=== PATIENT | female | born 1990 | race Asian ===

== ENCOUNTER 2023-05-21 09:12 | Inpatient (IN) | payer MEDICAID ==
[~2023-05-21] VITALS: Ht 160 cm; Wt 68.5 kg
[2023-05-21] MEDS ORDERED: RHO(D) IMMUNE GLOBULIN 300 MCG/SYR IM NR (10:00)
[2023-05-21] MEDS: LACTATED RINGERS 1,000 ML IV SCH ×2 (10:49→11:13)
[2023-05-21 11:10] LABS: BASOPHILS % 0.2 % (0.0-2.0); EOSINOPHILS % 0.9 % (0.0-5.0); HEMATOCRIT. 38.1 % (36.0-48.0); HEMOGLOBIN. 12.4 g/dL (12.0-16.0); LYMPHOCYTES % 22.9 % (20.0-50.0); MEAN CORPUSCULAR HEMOGLOBIN 26.5 pg (28.0-32.0); MEAN CORPUSCULAR HGB CONC 32.5 g/dL (31.0-37.0); MEAN CORPUSCULAR VOLUME 81.6 fL (81.0-99.0); MEAN PLATELET VOLUME 10.1 fl (7.4-10.4); MONOCYTES % 6.8 % (2.0-8.0); NEUTROPHILS % 69.2 % (40.0-76.0); PLATELET 202 x1000/uL (130-400); RED BLOOD CELL COUNT 4.67 mill/uL (4.2-5.4); RED CELL DISTRIBUTION WIDTH 15.3 % (11.6-14.6); WHITE BLOOD COUNT 7.9 x1000/uL (4.5-11.0)
[2023-05-21 11:13] LABS: CLARITY URINE CLOUDY (CLEAR); COLOR URINE YELLOW (YELLOW); GLUCOSE URINE NEGATIVE (NEGATIVE); KETONES URINE NEGATIVE (NEGATIVE); LEUKOCYTE ESTERASE URINE 3+ (NEGATIVE); NITRITE URINE NEGATIVE (NEGATIVE); OCCULT BLOOD URINE NEGATIVE (NEGATIVE); PH URINE 6.5 (4.5-8.0); PROTEIN URINE NEGATIVE (NEGATIVE); SPECIFIC GRAVITY URINE 1.007 (1.005-1.030); UROBILINOGEN URINE 0.2 E.U./dL (0.2-1.0)
[2023-05-21 11:36] LABS: INR 0.9; PARTIAL THROMBOPLASTIN TIME 27.1 sec (23.4-31.0); PROTHROMBIN TIME 9.8 sec (9.6-11.0)
[2023-05-21 11:40] LABS: RAPID HIV SCREEN NEGATIVE (NEGATIVE)
[2023-05-21 11:47] LABS: *AMPHETAMINES SCREEN URINE NEGATIVE (NEGATIVE); *BARBITURATES SCREEN URINE NEGATIVE (NEGATIVE); *BENZODIAZEPINES SCREEN URINE NEGATIVE (NEGATIVE); *COCAINE SCREEN URINE NEGATIVE (NEGATIVE); CANNABINOID URINE SCREEN NEGATIVE (NEGATIVE); ECSTASY MDMA SCREEN URINE NEGATIVE (NEGATIVE); METHADONE URINE SCREEN NEGATIVE (NEGATIVE); OPIATES URINE SCREEN NEGATIVE (NEGATIVE); PHENCYCLIDINE URINE SCREEN NEGATIVE (NEGATIVE)
[2023-05-21 11:51] LABS: SQUAMOUS EPITHELIAL CELL URINE 3+ /lpf (RARE/1+)
[2023-05-21 11:52] LABS: BACTERIA URINE 3+; RBC URINE NONE SEEN /hpf (0-2)
[2023-05-21] MEDS ORDERED: MORPHINE SULFATE/PF 1MG/ML 10ML AMP ONE (12:02)
[2023-05-21] MEDS ORDERED: LACTATED RINGERS 1,000 ML IV SCH (13:00)
[2023-05-21] MEDS ORDERED: DEXAMETHASONE 4MG/ML 1ML VIAL ONE (13:25)
[2023-05-21] MEDS ORDERED: OXYTOCIN 10 UNITS/ML 1ML ONE (13:25)
[2023-05-21] MEDS ORDERED: CEFAZOLIN SODIUM 1000MG/VIAL ONE (13:25)
[2023-05-21] MEDS ORDERED: KETOROLAC 60MG/2ML VIAL IM ONE (13:25)
[2023-05-21] MEDS ORDERED: METOCLOPRAMIDE HCL 10MG/2ML VIAL IV PRN (13:30)
[2023-05-21] MEDS ORDERED: FENTANYL CITRATE/PF 50MCG/ML 2ML VIAL IV PRN (13:30)
[2023-05-21] MEDS ORDERED: NALOXONE HCL 0.4 MG/ML 1ML VIAL IV PRN (13:30)
[2023-05-21] MEDS ORDERED: MORPHINE SULFATE/PF 1MG/ML 10ML AMP EPI PRN (13:30)
[2023-05-21] MEDS ORDERED: DIPHENHYDRAMINE 50MG/ML VIAL IV PRN (13:30)
[2023-05-21] MEDS ORDERED: ONDANSETRON HCL 4MG/2ML INJ IV PRN ×2 (13:30→19:45)
[2023-05-21] MEDS ORDERED: KETOROLAC 30MG/ML VIAL IV PRN (13:30)
[2023-05-21 13:47] LABS: HEPATITIS B SURFACE ANTIGEN NEGATIVE; RUBELLA IGG 105.4 IU/mL (4.99-10)
[2023-05-21] MEDS ORDERED: BISACODYL 10MG SUPP PR PRN (19:45)
[2023-05-21] MEDS ORDERED: DIPHENHYDRAMINE 25MG CAPSULE PO PRN (19:45)
[2023-05-21] MEDS ORDERED: OXYTOCIN 30 UNITS/500ML NS PMX 500 ML IV SCH (19:45)
[2023-05-21] MEDS ORDERED: RHO(D) IMMUNE GLOBULIN 300 MCG/SYR IM PRN (19:45)
[2023-05-21] MEDS ORDERED: HEMORRHOIDAL SUPP PR PRN (19:45)
[2023-05-21] MEDS ORDERED: IBUPROFEN 400MG TABLET PO PRN (19:45)
[2023-05-21] MEDS ORDERED: LANOLIN OINT 7GM TUBE TOP PRN (19:45)
[2023-05-21 20:00] VITALS: BP 102/62; PULSE 86; RESP 18; TEMP 97.4; O2SAT 97
[2023-05-21] MEDS ORDERED: NALOXONE HCL 0.4MG/ML VIAL IV PRN (20:30)
[2023-05-21] MEDS: SIMETHICONE 80MG TABLET CHEW PO SCH (22:18)
[2023-05-22] VITALS (7 sets, daily range): BP systolic 90–109; BP diastolic 50–67; PULSE 66–83; RESP 18; TEMP 97.1–98.4; O2SAT 98–99
[2023-05-22] MEDS: LACTATED RINGERS 1,000 ML IV SCH (02:25)
[2023-05-22] MEDS ORDERED: DIPHENHYDRAMINE 50MG/ML VIAL IV PRN (03:45)
[2023-05-22] MEDS: SIMETHICONE 80MG TABLET CHEW PO SCH ×4 (08:04→20:47)
[2023-05-22] MEDS: FERROUS SULFATE 325MG TABLET PO SCH ×3 (08:04→17:51)
[2023-05-22] MEDS ORDERED: PRENATAL VIT/FE FUMARATE/FA TABLET PO SCH (09:00)
[2023-05-22] MEDS: IBUPROFEN 800MG TABLET PO PRN (09:55)
[2023-05-22] MEDS: OXYCODONE HCL/ACETAMINOPHEN 5/325MG TABLET PO PRN ×2 (13:41→18:49)
[2023-05-22 17:07] LABS: BASOPHILS % 0.1 % (0.0-2.0); EOSINOPHILS % 0.3 % (0.0-5.0); HEMATOCRIT. 33.6 % (36.0-48.0); LYMPHOCYTES % 13.4 % (20.0-50.0); MEAN CORPUSCULAR HEMOGLOBIN 26.9 pg (28.0-32.0); MEAN CORPUSCULAR HGB CONC 32.7 g/dL (31.0-37.0); MEAN CORPUSCULAR VOLUME 82.5 fL (81.0-99.0); MEAN PLATELET VOLUME 9.7 fl (7.4-10.4); MONOCYTES % 6.1 % (2.0-8.0); NEUTROPHILS % 80.1 % (40.0-76.0); PLATELET 180 x1000/uL (130-400); RED BLOOD CELL COUNT 4.07 mill/uL (4.2-5.4); RED CELL DISTRIBUTION WIDTH 15.4 % (11.6-14.6)
[2023-05-23] MEDS ORDERED: MULT-1146 MT (00:54)
[2023-05-23] MEDS ORDERED: IBUP-2030 PO (00:54)
[2023-05-23] MEDS ORDERED: FERR-63 PO (00:54)
[2023-05-23 04:30] VITALS: BP 103/64; PULSE 68; RESP 18; TEMP 98.6
[2023-05-23] MEDS: IBUPROFEN 800MG TABLET PO PRN (04:35)
[2023-05-23 07:30] VITALS: BP 90/47; PULSE 69; RESP 18; TEMP 98.1
[2023-05-23 08:00] VITALS: O2SAT 98
== END 2023-05-23 11:15 | disposition home or self-care (01) | DRG 540 ==
LOC: 8 EST LDRP 09:12 → 8EST 20:00
PROVIDERS: ADMIT Obstetrics & Gynecology; ATTEND Obstetrics & Gynecology
PROC: 10D00Z1 Extraction of Products of Conception, Low, Open Approach (ICD-10-PCS; principal; 2023-05-21)
DX: O34.211 Maternal care for low transverse scar from previous cesarean delivery (principal); O99.12 Other diseases of the blood and blood-forming organs and certain disorders involving the immune mechanism complicating childbirth; D56.3 Thalassemia minor; Z37.0 Single live birth; Z3A.39 39 weeks gestation of pregnancy
CPT/HCPCS: 36415; 80305; 81003; 85025; 86592; 86703; 86762; 86850; 86900; 87340; 88307; 99281; J0690; J1100; J1200; J1885; J2274; J2405; J7120; J2590